=== PATIENT | female | born 1935 | race Hispanic/Latino ===

== ENCOUNTER 2017-12-11 20:13 | Inpatient (IN) | payer MEDICARE, BC ==
[2017-12-11] MEDS ORDERED: TDAP Vaccine 0.5 mL Syr IM ONE (21:01)
[2017-12-11 21:34] LABS: BASO # 0.02 K/mm3 (0.0-2.0); BASO % 0.3 % (0.0-3.0); EOS % 0.5 % (1.5-5.0); GRAN # 4.26 (1.4-6.5); HEMOGLOBIN 14.1 g/dL (12.0-16.0); LYMPH # 1.1 (1.2-3.4); LYMPH % 18.4 % (22.0-35.0); MEAN CELL VOLUME 88.1 fl (80.0-105.0); MEAN CORPUSCULAR HEMOGLOBIN 31.1 pg (25.0-35.0); MEAN CORPUSCULAR HGB CONC 35.3 g/dl (31.0-37.0); MEAN PLATELET VOLUME 8.8 fl (7.0-11.0); MONO # 0.4 (0.1-0.6); MONO % 6.8 % (1.0-6.0); RBC 4.53 10^6/uL (3.5-6.1); RED CELL DISTRIBUTION WIDTH 13.2 % (11.5-14.5); WHITE BLOOD COUNT 5.8 10^3/ul (4.5-11.0)
[2017-12-11 21:40] LABS: INR 0.99; PARTIAL THROMBOPLASTIN TIME 24.8 Seconds (25.1-36.5); PROTHROMBIN TIME 11.3 SECONDS (9.4-12.5)
[2017-12-11 21:42] LABS: ALB/GLOB RATIO 1.9 (1.1-1.8); ALBUMIN 4.2 g/dL (3.0-4.8); ALT/SGPT 32 U/L (7-56); AST/SGOT 37 U/L (14-36); BLOOD UREA NITROGEN 5 mg/dL (7-21); CALCIUM 8.8 mg/dL (8.4-10.5); GFR NON-AFRICAN AMERICAN > 60; LIPASE 285 U/L (23-300)
[2017-12-11 21:54] LABS: B-TYPE NATRIURETIC PEPTIDE 149 pg/mL (0-450); TROPONIN I < 0.01 ng/mL
--- NOTE | 2017-12-11 23:04 | ED PDOC ---
Arrival/HPI - General Chief Complaint: Trauma Time Seen by Provider: 12/11/17 20:30 Historian: Patient, Family - History of Present Illness Narrative History of Present Illness (Text): 12/11/17 23:04 82-year-old female with a history of dementia presents today after being found on the floor. Patient's daughter states that she spoke with the patient around 4 :30 this afternoon and then when she called the patient at 7:30 PM there was no answer so she called the police. Police found the patient on the ground with blood noted to the forehead/scalp. Patient states that she does not remember what happened. She denies headaches dizziness or weakness. She denies chest pain or shortness of breath. Patient states she was feeling fine yesterday and today. Patient states she has slight pain to the left ribs. She denies abdominal pain. No nausea or vomiting. She denies back pain. She denies hip pain. No other complaints. Past Medical History - Provider Review Nursing Documentation Reviewed: Yes - Travel History Have you recently traveled outside [place] w/in the past 3 mons?: No - Infectious Disease Hx of Infectious Diseases: None - Tetanus Immunization Tetanus Immunization: Unknown - Cardiac Hx Hypertension: Yes - Neurological Hx Dementia: Yes - Psychiatric Hx Depression: Yes Hx Substance Use: No - Surgical History Hx Hysterectomy: Yes - Anesthesia Hx Anesthesia: Yes Hx Anesthesia Reactions: No Hx Malignant Hyperthermia: No Family/Social History - Physician Review Nursing Documentation Reviewed: Yes Family/Social History: Unknown Family HX Smoking Status: Never Smoked Hx Alcohol Use: No Hx Substance Use: No Allergies/Home Meds Allergies/Adverse Reactions: Allergies No Known Allergies Allergy (Verified 12/11/17 20:26) Home Medications: Home Meds Medication Instructions Recorded Confirmed Donepezil HCl [Aricept] 10 mg PO DAILY 12/11/17 12/11/17 Escitalopram [Lexapro] 10 mg PO DAILY 12/11/17 12/11/17 Memantine [Namenda] 1 tab PO BID 12/11/17 12/11/17 Vit B12/Levomefolate/Vit B6/B2 1 tab PO DAILY 12/11/17 12/11/17 [Cerefolin [place]] Review of Systems - Review of Systems Constitutional: absent: Fatigue, Fevers Respiratory: absent: SOB, Cough Cardiovascular: Other (left sided rib pain). absent: Chest Pain, Palpitations Gastrointestinal: absent: Abdominal Pain, Nausea, Vomiting Genitourinary Female: absent: Dysuria, Frequency, Hematuria Musculoskeletal: absent: Back Pain, Neck Pain Skin: Laceration Neurological: absent: Headache, Dizziness Psychiatric: absent: Anxiety, Depression Physical Exam Vital Signs Reviewed: Yes Vital Signs Temp Pulse Resp BP Pulse Ox 12/11/17 20:17 97.5 F L 86 17 142/76 100 Temperature: Afebrile Blood Pressure: Normal Pulse: Regular Respiratory Rate: Normal Appearance: Positive for: Well-Appearing, Non-Toxic, Comfortable Pain Distress: None Mental Status: Positive for: other (ALERT x2) - Systems Exam Head: Present: Ecchymosis, Laceration (there is a 2cm linear laceration to left lateral forehead; no active bleeding; + ecchymosis. no step offs or crepitis) Pupils: Present: PERRL Extroacular Muscles: Present: EOMI Conjunctiva: Present: Normal Ears: Present: Normal, NORMAL TM Mouth: Present: Moist Mucous Membranes Pharnyx: Present: Normal Nose (External): Present: Atraumatic Nose (Internal): Present: Normal Inspection. No: Septal Hematoma, Epistaxis Neck: Present: Normal Range of Motion, Trachea Midline. No: MIDLINE TENDERNESS , Paraspinal Tenderness Respiratory/Chest: Present: Clear to Auscultation, Good Air Exchange, Tender to Palpation (+ ttp over left lateral upper ribs; no step offs or crepitus). No: Respiratory Distress, Accessory Muscle Use, Rhonchi, Tachypneic Cardiovascular: Present: Regular Rate and Rhythm, Normal S1, S2. No: Murmurs Abdomen: No: Tenderness, Distention, Rebound, Guarding Back: Present: Normal Inspection, Other (no ecchymosis). No: Midline Tenderness , Paraspinal Tenderness Upper Extremity: Present: Normal ROM. No: Tenderness Lower Extremity: Present: NORMAL PULSES, Normal ROM, Neurovascularly Intact, Capillary Refill < 2 s, Other (pelvis stable). No: Tenderness Neurological: Present: Speech Normal, Motor Func Grossly Intact, Normal Sensory Function Skin: Present: Warm, Dry, Normal Color Psychiatric: Present: Alert Medical Decision Making ED Course and Treatment: 12/11/17 23:38 82yr old female with syncope. ekg; normal sinus rhythm at 95 bpm normal axis normal intervals no ST elevations cxr; no infiltrate, no effusion Left ribs: Positive fracture of left third rib ct head; FINDINGS: Brain: Diffuse cerebral volume loss and chronic microvascular white matter changes. Ventricles: Unremarkable. Bones/joints: Unremarkable. No acute fracture. Soft tissues: Unremarkable. Sinuses: Unremarkable as visualized. Mastoid air cells: Unremarkable as visualized. IMPRESSION: No acute intracranial pathology or traumatic injury ct cspine: FINDINGS: Vertebrae: Multilevel discogenic degenerative changes. Mild multilevel spondylolisthesis, likely degenerative. No acute fracture. Discs/spinal canal/neural foramina: No acute findings. Soft tissues: Unremarkable. Lung apices: Unremarkable as visualized. IMPRESSION: No acute C-spine traumatic injury. chest CT: FINDINGS: Lungs: No mass. No consolidation. Pleural space: See below. Heart: No cardiomegaly. No significant pericardial effusion. Bones/joints: Fractures of the posterior left third rib with very minimal cortical step off. Minimal adjacent pleural thickening. No dislocation. Soft tissues: No radiopaque foreign body. Vasculature: No thoracic aortic aneurysm. Lymph nodes: No enlarged lymph nodes. IMPRESSION: Fractures of the posterior left third rib with very minimal cortical step off. Minimal adjacent pleural thickening. cbc; wnl cmp; wnl trop; wnl bnp; wnl ua; no leukocytes Laceration to the left forehead was cleaned and irrigated using high-pressure irrigation. Laceration repair with Dermabond. Patient reassessment: Patient is nontoxic well-appearing in no distress. all results discussed in depth with patient and her daughter. case discussed with dr. edward covering for dr. anthony impression; syncope, rib fracture, head injury, laceration observation to tele. dr. edward - Lab Interpretations Lab Results: 12/11/17 21:15 12/11/17 21:15 Lab Results 12/12/17 00:40: Urine Color Yellow, Urine Appearance Clear, Urine pH 7.5, Ur Specific [place] 1.015, Urine Protein Negative, Urine Glucose (UA) Negative, Urine Ketones Negative, Urine Blood Trace-intact H, Urine Nitrate Negative, Urine Bilirubin Negative, Urine Urobilinogen 0.2, Ur Leukocyte Esterase Negative , Urine RBC Pending, Urine WBC Pending 12/11/17 21:15: PT 11.3, INR 0.99, APTT 24.8 L 12/11/17 21:15: WBC 5.8, RBC 4.53, Hgb 14.1, Hct 39.9, MCV 88.1, MCH 31.1, MCHC 35.3, RDW 13.2, Plt Count 213, MPV 8.8, Gran % 74.0 H, Lymph % (Auto) 18.4 L, [place] % (Auto) 6.8 H, Eos % (Auto) 0.5 L, Baso % (Auto) 0.3, Gran # 4.26, Lymph # (Auto) 1.1 L, [place] # (Auto) 0.4, Eos # (Auto) 0.0, Baso # (Auto) 0.02 12/11/17 21:15: Sodium 133, Potassium 3.8, Chloride 94 L, Carbon Dioxide 31, Anion Gap 13, BUN 5 L, Creatinine 0.7, Est GFR ( Amer) > 60, Est GFR (Non -Af Amer) > 60, Random Glucose 119 H, Calcium 8.8, Total Bilirubin 0.3, AST 37 H , ALT 32, Alkaline Phosphatase 59, Lactate Dehydrogenase 524, Total Creatine Kinase 82, Troponin I < 0.01, NT-Pro-B Natriuret Pep 149, Total Protein 6.5, Albumin 4.2, Globulin 2.3, Albumin/Globulin Ratio 1.9 H, Lipase 285 - RAD Interpretation Radiology Orders: 12/11/17 20:59 HEAD W/O CONTRAST [CT] Stat 12/11/17 21:00 CERVICAL SPINE W/O CONTRAST [CT] Stat 12/11/17 21:01 RIBS LEFT [RAD] Stat 12/11/17 23:01 CHEST W/O CONTRAST [CT] Stat - Medication Orders Current Medication Orders: Discontinued Medications Acetaminophen (Tylenol 325mg Tab) 975 mg PO STAT STA Stop: 12/12/17 00:59 Tetanus/Reduced Diphtheria/Acell Pertussis (Boostrix Vaccine Inj) 0.5 ml IM .ONCE ONE Stop: 12/11/17 21:02 Last Admin: 12/11/17 22:05 Dose: 0.5 ml MAR Immunization Data Document 12/11/17 22:05 RD (Rec: 12/11/17 22:05 RD [id number]) Immunization Data Vaccine Information Sheet Given Yes Vaccine Information Sheet Given Date 12/11/17 Immunization Registry Document 09/16/18 22:05 RD (Rec: 12/11/17 22:05 RD [id number]) Immunization Registry Consent Date 12/11/17 Procedure: Wound Repair - Procedure Procedure: Wound Repair: left forehead - Consent Obtained Consent obtained: Verbal - Performed by Performed by: Mid-level Provider - Indications Indication(s):: Laceration - Location Shape:: Linear (2cm) Depth:: Epidermis - Debris Debris:: None - Irrigated Irrigated with ml of normal saline: copious amounts of NS using high pressure irrigation - Complexity Complexity:: Simple (one layer) - Wound repair method [place]:: Tissue glue - Complications Complications: none - Patient tolerated procedure Patient Tolerated Procedure:: Well Disposition/Present on Arrival - Present on Arrival Any Indicators Present on Arrival: No History of DVT/PE: No History of Uncontrolled Diabetes: No Urinary Catheter: No History of Decub. Ulcer: No History Surgical Site Infection Following: None - Disposition Have Diagnosis and Disposition been Completed?: Yes Diagnosis: Syncope, Rib fracture, Head injury, Laceration Disposition: HOSPITALIZED Disposition Time: 22:00 Patient Plan: Observation Patient Problems: Current Active Problems Problem Status Onset Head injury Acute Laceration Acute Rib fracture Acute Syncope Acute Condition: FAIR
[2017-12-12 01:11] LABS: PH,URINE 7.5 (4.7-8.0); URINE APPEARANCE CLEAR (CLEAR); URINE BILIRUBIN NEGATIVE (NEGATIVE); URINE BLOOD TRACE-INTACT (NEGATIVE); URINE COLOR YELLOW (YELLOW); URINE GLUCOSE (UA) NEGATIVE (NEGATIVE); URINE LEUKOCYTE ESTERASE NEGATIVE Leu/uL (NEGATIVE); URINE PROTEIN NEGATIVE mg/dL (<30 mg/dL); URINE UROBILINOGEN 0.2 E.U./dL (<1 E.U./dL)
[2017-12-12 01:21] LABS: URINE EPITHELIAL CELLS 0 - 2 /hpf (0-5); URINE RBC 0 - 2 /hpf (0-2); URINE WBC 0 - 2 /hpf (0-6)
--- NOTE | 2017-12-12 08:03 | CT ---
EXAM: CT Chest Without Intravenous Contrast CLINICAL HISTORY: 82 years old, female; Injury or trauma; Fall; Initial encounter; Blunt trauma (contusions or hematomas); Injury details: Pain posterior lt side; Additional info: Left rib fracture, rib pain fall TECHNIQUE: Axial computed tomography images of the chest without intravenous contrast. All CT scans at this facility use at least one of these dose optimization techniques: automated exposure control; mA and/or kV adjustment per patient size (includes targeted exams where dose is matched to clinical indication); or iterative reconstruction. Coronal and sagittal reformatted images were created and reviewed. COMPARISON: SD - CHEST PORTABLE 10/09/2015 7:56 PM FINDINGS: Lungs: No mass. No consolidation. Pleural space: See below. Heart: No cardiomegaly. No significant pericardial effusion. Bones/joints: Fractures of the posterior left third rib with very minimal cortical step off. Minimal adjacent pleural thickening. No dislocation. Soft tissues: No radiopaque foreign body. Vasculature: No thoracic aortic aneurysm. Lymph nodes: No enlarged lymph nodes. IMPRESSION: Fractures of the posterior left third rib with very minimal cortical step off. Minimal adjacent pleural thickening.
--- NOTE | 2017-12-12 09:47 | RAD ---
Date of service: 12/11/2017 PROCEDURE: Radiographs of the Chest and Left Ribs. HISTORY: Fall, left sided lateral/posterior rib pain COMPARISON: None available. TECHNIQUE: Frontal radiograph of the chest and multiple oblique radiographs of the left ribs were obtained. FINDINGS: LEFT RIBS: There is an acute nondisplaced fracture in the left lateral 3rd rib LUNGS: Clear. PLEURA: No pneumothorax or pleural fluid. CARDIOVASCULAR: Normal sized heart. No pulmonary vascular congestion. OTHER FINDINGS: None. IMPRESSION: Acute nondisplaced fracture in the left lateral 3rd rib. No pneumothorax.
--- NOTE | 2017-12-12 09:59 | RAD ---
Date of service: 12/12/2017 HISTORY: syncope COMPARISON: No prior. FINDINGS: LUNGS: There is peribronchial thickening with chronic changes in both lungs. PLEURA: No significant pleural effusion identified, no pneumothorax apparent. CARDIOVASCULAR: Normal. OSSEOUS STRUCTURES: No significant abnormalities. VISUALIZED UPPER ABDOMEN: Normal. OTHER FINDINGS: None. IMPRESSION: No active pulmonary disease.
--- NOTE | 2017-12-12 10:14 | CT ---
Date of service: 12/11/2017 PROCEDURE: CT HEAD WITHOUT CONTRAST. HISTORY: headache COMPARISON: None available. TECHNIQUE: Axial computed tomography images were obtained through the head/brain without intravenous contrast. Radiation dose: Total exam DLP = 1040 mGy-cm. This CT exam was performed using one or more of the following dose reduction techniques: Automated exposure control, adjustment of the mA and/or kV according to patient size, and/or use of iterative reconstruction technique. FINDINGS: HEMORRHAGE: No intracranial hemorrhage. BRAIN: No mass effect or edema. No atrophy or chronic microvascular ischemic changes. VENTRICLES: Unremarkable. No hydrocephalus. CALVARIUM: Unremarkable. PARANASAL SINUSES: Unremarkable as visualized. No significant inflammatory changes. MASTOID AIR CELLS: Unremarkable as visualized. No inflammatory changes. OTHER FINDINGS: The report concurs with the preliminary [facility] report IMPRESSION: No acute findings
--- NOTE | 2017-12-12 10:17 | CT ---
Date of service: 12/11/2017 PROCEDURE: CT Cervical Spine without contrast HISTORY: neck pain COMPARISON: None available. TECHNIQUE: Axial computed tomography images were obtained of the cervical spine without the use of intravenous contrast. Coronal and sagittal reformatted images were created and reviewed. Radiation dose: Total exam DLP = 258 mGy-cm. This CT exam was performed using one or more of the following dose reduction techniques: Automated exposure control, adjustment of the mA and/or kV according to patient size, and/or use of iterative reconstruction technique. FINDINGS: VERTEBRAE: No fracture. Normal alignment. No destructive bony lesion. DISCS/SPINAL CANAL/NEURAL FORAMINA: No significant central canal or neural foraminal stenosis. Disc degeneration at C5-6 and C6-7 PARASPINAL SOFT TISSUES: Unremarkable. OTHER FINDINGS: The report concurs with the preliminary [facility] report IMPRESSION: No acute findings
--- NOTE | 2017-12-12 13:24 | CP.PCM.HP ---
<JuniorhomeroavaGenaro day - Last Filed: 12/12/17 13:39> History of Present Illness - History of Present Illness History of Present Illness: 82 year old female with past medical history of HTN and dementia presented to the hospital by her daughter after being found on the floor at home. Patient with history of dementia, medical history from prior medical records. Multiple calls made to next of kin in chart with no answer. Patient did not pick up and delivery driver her phone from her daughter so she called the police of the patient. Patient does admit to hitting her head on the left side. Patient did not know why she was in the hospital or how she got there. ROS and PMH unobtainable due to patient's dementia. Present on Admission - Present on Admission Any Indicators Present on Admission: No Review of Systems - Review of Systems Systems not reviewed;Unavailable: Dementia Past Patient History - Infectious Disease Hx of Infectious Diseases: None - Tetanus Immunizations Tetanus Immunization: Unknown - Past Social History Smoking Status: Never Smoked - CARDIAC Hx Hypertension: Yes - NEUROLOGICAL Hx Dementia: Yes - PSYCHIATRIC Hx Depression: Yes Hx Substance Use: No - SURGICAL HISTORY Hx Hysterectomy: Yes - ANESTHESIA Hx Anesthesia: Yes Hx Anesthesia Reactions: No Hx Malignant Hyperthermia: No Meds Allergies/Adverse Reactions: Allergies Allergy/AdvReac Type Severity Reaction Status Date / Time No Known Allergies Allergy Verified 12/12/17 18:59 Physical Exam - Constitutional Appears: Non-toxic, No Acute Distress - Head Exam Head Exam: ATRAUMATIC, NORMAL INSPECTION, NORMOCEPHALIC - ENT Exam ENT Exam: Mucous Membranes Moist - Respiratory Exam Respiratory Exam: Clear to Auscultation Bilateral, NORMAL BREATHING PATTERN - Cardiovascular Exam Cardiovascular Exam: RRR, +S1, +S2 - GI/Abdominal Exam GI & Abdominal Exam: Normal Bowel Sounds, Soft. absent: Tenderness - Extremities Exam Extremities exam: Positive for: normal inspection - Neurological Exam Neurological exam: Alert Additional comments: Oriented to person only - Psychiatric Exam Psychiatric exam: Normal Affect, Normal Mood - Skin Skin Exam: Intact, Normal Color, Warm Results - Vital Signs Recent Vital Signs: Last Vital Signs Temp 97.9 F 12/12/17 09:10 Pulse 89 12/12/17 12:57 Resp 18 12/12/17 12:57 BP 136/77 12/12/17 12:57 Pulse Ox 100 12/12/17 12:57 - Labs Result Diagrams: 12/11/17 21:15 09/16/18 21:15 Assessment & Plan - Assessment and Plan (Free Text) Plan: 1. Syncope 2. Fall 3. Dementia 4. HTN Patient will be evaluated by cardiology and neurology for potential syncopal episode. Several attempts to contact family via telephone have been unsuccessful. Patient will continue her home medications for her dementia. Patient blood pressure stable that this time, will continue to monitor closely. Thomas PGY-3 <Blue Florez - Last Filed: 12/12/17 20:27> Results - Vital Signs Recent Vital Signs: Last Vital Signs Temp 97.9 F 12/12/17 19:02 Pulse 81 12/12/17 19:02 Resp 17 12/12/17 19:02 BP 135/78 12/12/17 19:02 Pulse Ox 99 12/12/17 18:25 - Labs Result Diagrams: 12/11/17 21:15 12/11/17 21:15 Assessment & Plan - Assessment and Plan (Free Text) Plan: Pt seen and examined. I have reviewed the note of the emergency medical technician/driver and agree with it. I have discussed the assessment and plan with the resident. I have reviewed the patient's labs and medications. Pt with syncope vs fall. Will get cardio and neurology. Will place on tele. Pt with Dementia.
--- NOTE | 2017-12-12 15:23 | CARD ---
APPROVED REPORT Date of service: 12/11/2017 EKG Measurement Heart [id number] <Conclusion> Normal sinus rhythm Normal ECG
--- NOTE | 2017-12-12 16:44 | CON ---
DATE: 12/12/2017 NEUROLOGY CONSULT CHIEF COMPLAINT: Status post syncope. HISTORY OF PRESENT ILLNESS: This is an 82-year-old woman with history of hypertension; cognitive impairment, on Aricept; and dementia who was found on the floor at home by the daughter. The patient did not pepper picker the phone from her daughter, so she called the police . The patient does admit hitting her head on the left side, but did not know how she passed out. Apparently, according to the daughter, she had drank a bottle of wine and few days given that this particular day when she drank the wine was her 's anniversary. Currently, her CAT scan of the head showed no acute intracranial abnormalities, showed some mild scalp hematoma. She is following commands, moving all extremities. No pronator drift seen on examination. She has a reduced BUN of 5, making her poorly hydrated hydration right now. PAST MEDICAL HISTORY: As above. SOCIAL HISTORY: No illicit drug use, smoking. Social drinker. ALLERGIES: NO KNOWN DRUG ALLERGIES. MEDICATIONS: Reviewed by nurses' reconciliation sheet. REVIEW OF SYSTEMS: A 14-point review of systems is negative except in the HPI. LABORATORY DATA: Sodium is 133, potassium 3.8, chloride of 94, carbon dioxide of 31, BUN of 5, creatinine 0.7, random glucose of 119. PHYSICAL EXAMINATION: VITAL SIGNS: Temperature is 97.9, pulse rate of 89, blood pressure 147/68, respiratory rate of 18, oxygen saturation 99% by room air. GENERAL: The patient is sitting up in bed, in no acute distress. HEENT: Atraumatic, normocephalic. PERRLA. Extraocular muscles intact. Has some bruising over her forehead from the fall. NECK: Supple. No JVD, no adenopathy noted. LUNGS: Clear to auscultation. No adventitious sounds. HEART: S1, S2. Normal rate and rhythm. No murmurs, rubs, or gallops. ABDOMEN: Soft, nontender, and nondistended. Bowel sounds are present. EXTREMITIES: No clubbing. No cyanosis. Peripheral pulses 2+ felt bilaterally. NEUROLOGIC: The patient is alert and oriented to person, place, and year. Recall after 5 minutes is 0/3. Poor attention span, slow thought process. Has a flat affect. Speech is fluent without any errors. No aphasia noted. Cranial nerves II through XII are intact. Motor: Slightly increased tone throughout. Moves all extremities equally. No pronator drift seen. Sensory: Light touch, pinprick, proprioception, and vibration are intact. DTRs are 2+ throughout, 1 at both knees and ankles. Coordination: [id number] intact. Toes are downgoing bilaterally. No dysmetria noted. Gait is deferred for now. IMPRESSION: The syncopal event could be secondary to vasovagal type from dehydration from drinking wine and possible fall with superimposed underlying deconditioned state. At this time, we would recommend: 1. Adequate hydration. 2. PT/OT evaluation. 3. Continue with Aricept 10 mg, Namenda 10 mg p.o. b.i.d. for cognitive impairment and advised frequent reorientation throughout the day and attention and concentration exercises in regards to her dementia. 4. Lexapro for underlying depression, 10 mg p.o. daily. 5. Monitor electrolytes and correct accordingly. 6. Aspirin 81 mg p.o. daily for stroke prevention. 7. Keep her systolic blood pressures between 130s-140s and diastolic 70s-80s. At this time, continue on current present medical management. Recommend a carotid Doppler. Thank you for this consult. Chuy Vail MD
--- NOTE | 2017-12-12 17:26 | US ---
PROCEDURE: Bilateral carotid artery duplex ultrasound HISTORY: Carotid stenosis syncope PHYSICIAN(S): Leonidas Berry MD. TECHNIQUE: Duplex sonography and color-flow Doppler were used to evaluate the carotid bifurcations and limited segments of the vertebral arteries bilaterally. FINDINGS: There is mild diffuse heterogeneous plaque noted at the carotid bifurcations bilaterally. The peak systolic velocity in the proximal right internal carotid artery is 112 cm/sec. This corresponds to a 40-59 percent proximal right ICA stenosis. Normal systolic velocities are noted in the proximal right external carotid artery. There is antegrade flow in the right vertebral artery. The peak systolic velocity in the proximal left internal carotid artery is 64 cm/sec. This corresponds to a 20 to 39% proximal left ICA stenosis. Normal systolic velocities are noted in the proximal left external carotid artery. There is antegrade flow in the left vertebral artery. IMPRESSION: 1. 40-59 percent proximal right ICA stenosis. 2. 20-39 percent proximal left ICA stenosis. 3. Antegrade flow in both vertebral arteries.
[2017-12-12 19:30] VITALS: BMI 21.9
[2017-12-12] MEDS ORDERED: Pneumococcal 23-Valent Vaccine IM ONE (19:30)
[2017-12-13 07:01] LABS: ALB/GLOB RATIO 1.4 (1.1-1.8); ALBUMIN 3.5 g/dL (3.0-4.8); ALT/SGPT 23 U/L (7-56); AST/SGOT 27 U/L (14-36); BLOOD UREA NITROGEN 12 mg/dL (7-21); GFR NON-AFRICAN AMERICAN > 60; HEMOGLOBIN 13.2 g/dL (12.0-16.0); MEAN CELL VOLUME 88.5 fl (80.0-105.0); MEAN CORPUSCULAR HEMOGLOBIN 30.3 pg (25.0-35.0); MEAN CORPUSCULAR HGB CONC 34.2 g/dl (31.0-37.0); MEAN PLATELET VOLUME 9.2 fl (7.0-11.0); RBC 4.36 10^6/uL (3.5-6.1); RED CELL DISTRIBUTION WIDTH 13.1 % (11.5-14.5); WHITE BLOOD COUNT 6.1 10^3/ul (4.5-11.0)
[2017-12-13] MEDS: Potassium Chloride 20 mEq ER Tab PO SCH (09:23)
--- NOTE | 2017-12-13 09:30 | CON ---
DATE: 12/13/2017 INDICATIONS: Fall at home with head trauma and rib fracture. HISTORY OF PRESENT ILLNESS: This is an 82-year-old woman admitted yesterday through the Emergency Room after a fall at home. She was found on the floor when she did not answer multiple phone calls made by her daughter. She has a laceration on the forehead and was found to have a rib fracture. The etiology of the fall is probably related to wine consumption and unsteady gait, although the exact details are not clear. There does not seem to have been no chest pain, shortness of breath, palpitations, vertigo, edema, claudication, orthopnea, PND, fever, chills, cough, sputum production, hemoptysis, abdominal pain, nausea, vomiting, diarrhea, constipation, melena. The patient is a very limited historian because of dementia and cognitive dysfunction. PAST MEDICAL HISTORY: Notable for hypertension and dementia. She has had a carotid ultrasound which demonstrated cerebrovascular disease of [id number] severity. There is no history of rheumatic fever, myocardial infarction, angina, congestive heart failure, arrhythmia, stroke, TIA, diabetes or gout. MEDICATIONS: At the time of admission include Aricept, Namenda, Lexapro, vitamin B12. ALLERGIES: THERE ARE NO MEDICATION ALLERGIES. SOCIAL HISTORY: She lives alone at home. Family watches her. She does not smoke cigarettes. She drinks wine on infrequent occasions. She was ambulatory, but limited. FAMILY HISTORY: Not available. REVIEW OF SYSTEMS: The 10-point review of systems is limited by dementia. PHYSICAL EXAMINATION: GENERAL: She is an elderly woman lying in bed on Telemetry, in no acute distress. VITAL SIGNS: She is in sinus rhythm at 84 beats per minute. She is afebrile. Blood pressure 140/70, respirations 16-20, O2 sat 95-99% on room air. HEENT: Exam reveals no neck vein distention, thyromegaly, carotid bruits. Mucous membranes moist. Conjunctiva pink. NECK: Supple. LUNGS: Lung barney clear. HEART: Revealed normal first and second heart sounds. ABDOMEN: Soft. Bowel sounds present. No mass, organomegaly, tenderness, rebound, guarding. No CVA tenderness. No palpable abdominal aortic aneurysm. EXTREMITIES: Revealed no cyanosis, clubbing or edema. NEUROLOGIC: She was awake, but not oriented. PSYCHIATRIC: Limited. There was dementia. SKIN: Warm and dry. No rash or cellulitis. LABORATORY AND IMAGING: Chest x-ray was a portable study, revealed no acute pulmonary disease. CT scan of the head reveals no acute findings. EKG, regular sinus rhythm, within normal limits. Cervical spine CT reveals no acute findings. X-ray of the ribs revealed acute nondisplaced fracture of the left lateral third rib. No pneumothorax. CT of the chest revealed fracture of the posterior left third rib. A carotid ultrasound revealed a moderate right ICA stenosis and mild left ICA stenosis. Antegrade flow in both vertebral arteries. White count normal. Hemoglobin, hematocrit, platelet count unremarkable. PT/INR normal. PTT 24.8. Electrolytes notable for potassium of 3.4, sodium 131, BUN 12, creatinine 0.6. Blood sugar is normal. LFT is unremarkable. CK 82, troponin less than 0.01. BNP 149. Lipase normal. Urinalysis noted. IMPRESSION: Kia Mckeon is an 82-year-old woman who fell at home, possibly related to unsteady gait, wine consumption, possible vasovagal episode. Her EKG is benign. Troponin was negative. There have been no arrhythmias so far on telemetry. She is undergoing a neurologic evaluation. I will order postural vital signs. She is getting Aricept, Lexapro, Namenda. Potassium should be replaced. I will follow along with you. I will order an echocardiogram. Overall, a conservative course of cardiac care is anticipated. Martin Leahy MD [facility]
--- NOTE | 2017-12-14 00:09 | PN ---
DATE: 12/13/2017 SUBJECTIVE: The patient has no complaints of any chest pain, no shortness of breath, no headaches or dizziness. PHYSICAL EXAMINATION: VITAL SIGNS: Temperature is 98.4, pulse of 82, blood pressure is 137/79, respirations 18. GENERAL: The patient is lying in bed, flat, comfortable. HEENT: No oral lesion. Anicteric sclerae. Moist mucosa. NECK: No JVD, adenopathy, or thyromegaly. CARDIOVASCULAR: S1 and S2, regular. No murmurs, rubs, or gallops. LUNGS: Clear to auscultation bilaterally. No wheeze, rales, or rhonchi. ABDOMEN: Bowel sounds are positive, soft, nontender and nondistended. EXTREMITIES: No cyanosis, clubbing or edema. LABORATORY DATA: Sodium is 131, potassium is 3.4, creatinine is 0.6. The patient's carotid ultrasound was reviewed, no significant abnormalities. The patient was seen by Dr. Leahy and by Dr. Vail and an echo has been ordered. ASSESSMENT: 1. Syncope. 2. 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 3. Hypertension. PLAN: The patient is currently on Aricept for her dementia. She is receiving potassium. She is on Lexapro. She is on memantine. The patient is on Tylenol. She is on incentive spirometry. She was seen by physical therapy, but was not fully evaluated. I did call the patient's daughter, but was not able to get in touch with her. I left a message updating the daughter, Orquidea; and also left her my number to call back. Blue Florez MD
--- NOTE | 2017-12-14 07:05 | CARD ---
APPROVED REPORT Date of service: 12/13/2017 EXAM: Two-dimensional and M-mode echocardiogram with Doppler and color Doppler. INDICATION Syncope 2D DIMENSIONS Left Atrium (2D)3.6 (1.6-4.0cm)IVSd1.0 (0.7-1.1cm) LVDd3.2 (3.9-5.9cm)PWd1.1 (0.7-1.1cm) LVDs2.1 (2.5-4.0cm)FS (%) 34.3 % LVEF (%)64.8 (>50%) M-Mode DIMENSIONS Aortic Root2.50 (2.2-3.7cm)Aortic Cusp Exc.1.50 (1.5-2.0cm) Aortic Valve AoV Peak Wagxlncp097.0cm/Beverley Peak GR.6mmHgLVOT Peak Njomkqqm212.0cm/s LVOT VTI23.70cm Mitral Valve MV E Cxtyeeft19.8cm/sMV A Jkwqtvfj088.0cm/sE/A ratio0.9 TDI Lateral E' Peak V7.51cm/sMedial E' Peak V7.02cm/sE/Lateral E'12.8 E/Medial E'13.6 Pulmonary Valve PV Peak Hbqzlsln89.1cm/sPV Peak Grad.2mmHg Tricuspid Valve TR Peak [id number]/sRAP [id number] Peak Gr.37mmHg [id number] LEFT VENTRICLE The left ventricle is normal size. There is normal left ventricular wall thickness. The left ventricular function is normal. The left ventricular ejection fraction is within the normal range. There is normal LV segmental wall motion. RIGHT VENTRICLE The right ventricle is normal size. The right ventricular systolic function is normal. ATRIA The left atrium size is normal. The right atrium size is normal. The interatrial septum is intact with no evidence for an atrial septal defect. AORTIC VALVE The aortic valve is mildly sclerotic. No aortic regurgitation is present. There is no aortic valvular stenosis. MITRAL VALVE Mitral annular calcification is mild. Mitral regurgitation is trace. TRICUSPID VALVE The tricuspid valve is normal in structure. There is moderate tricuspid regurgitation. PULMONIC VALVE The pulmonary valve is normal in structure. GREAT VESSELS The aortic root is normal in size. The IVC is normal in size and collapses >50% with inspiration. PERICARDIAL EFFUSION There is no pleural effusion. There is no pericardial effusion. <Conclusion> Normal chamber size. Normal LV systolic function. Moderate TR.
[2017-12-14] MEDS: Potassium Chloride 20 mEq ER Tab PO SCH (09:10)
--- NOTE | 2017-12-14 10:44 | CP.PCM.PN ---
<Genaro Guzman - Last Filed: 12/14/17 10:41> Subjective - Date & Time of Evaluation Date of Evaluation: 12/14/17 Time of Evaluation: 10:41 - Subjective Subjective: Patient seen and examined at bedside. Patient with no complaints at the present time. No acute events overnight. Denies chest pain, shortness of breath, nausea , vomiting, diarrhea, fever. Objective - Vital Signs/Intake and Output Vital Signs (last 24 hours): Temp Pulse Resp BP Pulse Ox 98.4 F 84 18 168/81 H 100 12/14/17 06:00 12/14/17 06:00 12/14/17 06:00 12/13/17 23:31 12/13/17 23:31 Intake and Output: 12/14/17 12/14/17 06:59 18:59 Intake Total 440 Balance 440 - Medications Medications: Current Medications Donepezil HCl (Aricept) 10 mg PO DAILY [facility] Last Admin: 12/14/17 09:11 Dose: 10 mg Escitalopram Oxalate (Lexapro) 10 mg PO DAILY [facility] Last Admin: 12/14/17 09:10 Dose: 10 mg Lorazepam (Ativan) 0.5 mg IVP Q6H PRN; Protocol PRN Reason: Anxiety Last Admin: 12/12/17 20:38 Dose: 0.5 mg Memantine (Namenda) 10 mg PO BID [facility] Last Admin: 12/14/17 09:10 Dose: 10 mg Potassium Chloride (K-Dur 20 Meq Er Tab) 20 meq PO BRK [facility] Last Admin: 12/14/17 09:10 Dose: 20 meq - Labs Labs: PT 11.3 SECONDS (9.4-12.5) 12/11/17 21:15 INR 0.99 12/11/17 21:15 APTT 24.8 Seconds (25.1-36.5) L 12/11/17 21:15 - Constitutional Appears: Non-toxic, No Acute Distress - Head Exam Head Exam: NORMAL INSPECTION, NORMOCEPHALIC Additional comments: Bruising of left temporal region - ENT Exam ENT Exam: Mucous Membranes Moist - Respiratory Exam Respiratory Exam: Clear to Ausculation Bilateral, NORMAL BREATHING PATTERN - Cardiovascular Exam Cardiovascular Exam: RRR, +S1, +S2 - GI/Abdominal Exam GI & Abdominal Exam: Soft, Normal Bowel Sounds. absent: Tenderness - Extremities Exam Extremities Exam: Normal Inspection. absent: Pedal Edema, Tenderness - Neurological Exam Neurological Exam: Alert, Awake, CN II-XII Intact, Oriented x3 - Psychiatric Exam Psychiatric exam: Anxious, Normal Affect - Skin Skin Exam: Dry, Intact, Warm Assessment and Plan - Assessment and Plan (Free Text) Plan: 1. Syncope 2. Dementia, probably Alzheimer's 3. S/p fall 4. HTN The patient currently remains on Aricept and Namenda for her Dementia. Patient will remain on Lexapro. The patient continues to be on tylenol as needed for fever or pain. Patient will be seen by physical therapy today. Echocardiogram shows normal ejection fraction with mild TR. Patient also evaluated by neurology who recommend maintaining adequate blood pressure. Multiple attempts have been made to contact patient's daughter with no success. Will continue to try to contact daughter. Will continue current medical regimen and monitor closely. Thomas, PGY-3 <Blue Florez S - Last Filed: 12/15/17 18:57> Objective - Vital Signs/Intake and Output Vital Signs (last 24 hours): Temp Pulse Resp BP Pulse Ox 98.8 F 77 20 141/71 99 12/15/17 06:00 12/15/17 06:00 12/15/17 06:00 12/15/17 06:00 12/15/17 06:00 Intake and Output: 12/15/17 12/15/17 06:59 18:59 Intake Total 0 Balance 0 - Labs Labs: 12/15/17 07:45 12/15/17 07:45 PT 11.3 SECONDS (9.4-12.5) 12/11/17 21:15 INR 0.99 12/11/17 21:15 APTT 24.8 Seconds (25.1-36.5) L 12/11/17 21:15 Assessment and Plan - Assessment and Plan (Free Text) Plan: Pt seen and examined. This is a late entry. I have reviewed the note of the medical administrative and agree with it. I have discussed the assessment and plan with the resident. I have reviewed the patient's labs and medications. I spoke to pt's daughter Orquidea. She prefers to take her home and not to a [facility] facility. I went over the work up and results. Explained to her the plan of care.
--- NOTE | 2017-12-14 18:01 | PN ---
DATE: 12/14/2017 SUBJECTIVE: The patient is seen lying in bed on telemetry. She offers no complaints at present. She denies any chest pain or dyspnea. Telemetry monitoring has been unremarkable. CURRENT MEDICATIONS: Include Aricept, Ativan, Lexapro, Namenda, and potassium. OBJECTIVE: VITAL SIGNS: Her blood pressure is 146/62 with a pulse of 80 and sinus with occasional PVC, respirations 16. She is afebrile. HEENT: No JVD. CHEST: Few scattered rhonchi. HEART: PMI in normal position. Systolic murmurs present in the left sternal border. ABDOMEN: Soft, nontender, normoactive bowel sounds. EXTREMITIES: No edema. DIAGNOSTIC DATA: No blood work pending from the morning. Echocardiogram reveals normal chamber size with normal LV systolic function, moderate tricuspid regurgitation. IMPRESSION: 1. Recent fall, etiology unclear. No clear evidence of dysrhythmias noted thus far. 2. Moderate tricuspid regurgitation with preserved left ventricular function. 3. History of dementia. 4. History of hypertension. RECOMMENDATIONS: At the present time, continuing conservative management appears most appropriate. No further cardiac workup appears necessary at this time. If she has recurrent symptoms, this can be reassessed. Telemetry monitoring can be discontinued as well. Thank you for this consultation. We will be happy to see her as needed. Adonis Faye MD
[2017-12-14 21:15] VITALS: RESP 20
[2017-12-15 08:06] LABS: HEMOGLOBIN 12.7 g/dL (12.0-16.0); MEAN CELL VOLUME 89.4 fl (80.0-105.0); MEAN CORPUSCULAR HEMOGLOBIN 30.7 pg (25.0-35.0); MEAN CORPUSCULAR HGB CONC 34.3 g/dl (31.0-37.0); MEAN PLATELET VOLUME 9.1 fl (7.0-11.0); RBC 4.14 10^6/uL (3.5-6.1); WHITE BLOOD COUNT 7.1 10^3/ul (4.5-11.0)
[2017-12-15 08:26] LABS: ALB/GLOB RATIO 1.3 (1.1-1.8); ALBUMIN 3.6 g/dL (3.0-4.8); ALT/SGPT 25 U/L (7-56); AST/SGOT 24 U/L (14-36); BLOOD UREA NITROGEN 14 mg/dL (7-21); GFR NON-AFRICAN AMERICAN > 60
[2017-12-15 09:26] VITALS: BP 141/71; PULSE 77; TEMP 98.8; O2SAT 99
[2017-12-15] MEDS: Potassium Chloride 20 mEq ER Tab PO SCH (09:51)
--- NOTE | 2017-12-15 16:38 | CP.PCM.DIS ---
<Genaro Guzman - Last Filed: 12/15/17 16:34> Provider - Provider Date of Admission: 12/13/17 16:25 Attending physician: Blue Florez MD Consults: Neuro: Dr. Vail Cardio: Dr. Leahy Time Spent in preparation of Discharge (in minutes): 45 Diagnosis - Discharge Diagnosis (1) Head injury Status: Resolved (2) Syncope Status: Resolved (3) HTN (hypertension) Status: Chronic (4) Dementia Status: Chronic Hospital Course - Lab Results Lab Results: Most Recent Lab Values WBC 7.1 10^3/ul (4.5-11.0) 12/15/17 07:45 RBC 4.14 10^6/uL (3.5-6.1) 12/15/17 07:45 Hgb 12.7 g/dL (12.0-16.0) 12/15/17 07:45 Hct 37.0 % (36.0-48.0) 12/15/17 07:45 MCV 89.4 fl (80.0-105.0) 12/15/17 07:45 MCH 30.7 pg (25.0-35.0) 12/15/17 07:45 MCHC 34.3 g/dl (31.0-37.0) 12/15/17 07:45 RDW 13.0 % (11.5-14.5) 12/15/17 07:45 Plt Count 156 10^3/uL (120.0-450.0) 12/15/17 07:45 MPV 9.1 fl (7.0-11.0) 12/15/17 07:45 Gran % 74.0 % (50.0-68.0) H 12/11/17 21:15 Lymph % (Auto) 18.4 % (22.0-35.0) L 12/11/17 21:15 Nicholas % (Auto) 6.8 % (1.0-6.0) H 12/11/17 21:15 Eos % (Auto) 0.5 % (1.5-5.0) L 12/11/17 21:15 Baso % (Auto) 0.3 % (0.0-3.0) 12/11/17 21:15 Gran # 4.26 (1.4-6.5) 12/11/17 21:15 Lymph # (Auto) 1.1 (1.2-3.4) L 12/11/17 21:15 Nicholas # (Auto) 0.4 (0.1-0.6) 12/11/17 21:15 Eos # (Auto) 0.0 (0.0-0.7) 12/11/17 21:15 Baso # (Auto) 0.02 K/mm3 (0.0-2.0) 12/11/17 21:15 PT 11.3 SECONDS (9.4-12.5) 12/11/17 21:15 INR 0.99 12/11/17 21:15 APTT 24.8 Seconds (25.1-36.5) L 12/11/17 21:15 Sodium 130 mmol/L (132-148) L 12/15/17 07:45 Potassium 4.3 mmol/L (3.6-5.0) 12/15/17 07:45 Chloride 95 mmol/L (98-107) L 12/15/17 07:45 Carbon Dioxide 29 mmol/L (21-33) 12/15/17 07:45 Anion Gap 11 (10-20) 12/15/17 07:45 BUN 14 mg/dL (7-21) 12/15/17 07:45 Creatinine 0.6 mg/dl (0.7-1.2) L 12/15/17 07:45 Est GFR ( Amer) > 60 12/15/17 07:45 Est GFR (Non-Af Amer) > 60 12/15/17 07:45 POC Glucose (mg/dL) 134 mg/dL (65-110) H 12/13/17 21:21 Random Glucose 99 mg/dL (70-110) 12/15/17 07:45 Calcium 9.0 mg/dL (8.4-10.5) 12/15/17 07:45 Magnesium 1.9 mg/dL (1.7-2.2) 12/13/17 15:58 Total Bilirubin 0.7 mg/dL (0.2-1.3) 12/15/17 07:45 AST 24 U/L (14-36) 12/15/17 07:45 ALT 25 U/L (7-56) 12/15/17 07:45 Alkaline Phosphatase 49 U/L (38-126) 12/15/17 07:45 Lactate Dehydrogenase 524 U/L (333-699) 12/11/17 21:15 Total Creatine Kinase 82 U/L (35-230) 12/11/17 21:15 Troponin I < 0.01 ng/mL 12/13/17 07:00 NT-Pro-B Natriuret Pep 149 pg/mL (0-450) 12/11/17 21:15 Total Protein 6.2 g/dL (5.8-8.3) 12/15/17 07:45 Albumin 3.6 g/dL (3.0-4.8) 12/15/17 07:45 Globulin 2.7 gm/dL 12/15/17 07:45 Albumin/Globulin Ratio 1.3 (1.1-1.8) 12/15/17 07:45 Lipase 285 U/L (23-300) 12/11/17 21:15 Urine Color Yellow (YELLOW) 12/12/17 00:40 Urine Appearance Clear (CLEAR) 12/12/17 00:40 Urine pH 7.5 (4.7-8.0) 12/12/17 00:40 Ur Specific Sun 1.015 (1.005-1.035) 12/12/17 00:40 Urine Protein Negative mg/dL (<30 mg/dL) 12/12/17 00:40 Urine Glucose (UA) Negative mg/dL (NEGATIVE) 12/12/17 00:40 Urine Ketones Negative mg/dL (NEGATIVE) 12/12/17 00:40 Urine Blood Trace-intact (NEGATIVE) H 12/12/17 00:40 Urine Nitrate Negative (NEGATIVE) 12/12/17 00:40 Urine Bilirubin Negative (NEGATIVE) 12/12/17 00:40 Urine Urobilinogen 0.2 E.U./dL (<1 E.U./dL) 18 00:40 Ur Leukocyte Esterase Negative Celio/uL (NEGATIVE) 18 00:40 Urine RBC 0 - 2 /hpf (0-2) 1718 00:40 Urine WBC 0 - 2 /hpf (0-6) 12/12/17 00:40 Ur Epithelial Cells 0 - 2 /hpf (0-5) 12/12/17 00:40 - Hospital Course Hospital Course: 82 year old female with past medical history of HTN and dementia presented to the hospital s/p fall at home. Patient was not answering the phone, so patient' s daughter called the police who found patient on the floor. Patient was brought into the hospital and found to have a bruise on the left side of her head. Patient was found to have nondisplaced left third rib fracture. Head and cervical neck CT was negative. Patient was seen by cardiology and neurology. Echocardiogram showed normal LV function. Carotid artery US was normal with no significant stenoses. Patient will be discharged home with daughter. Patient will follow up with PMD within 1 week. Discharge Exam - Head Exam Head Exam: NORMAL INSPECTION, NORMOCEPHALIC Additional comments: Left temporal bruising - ENT Exam ENT Exam: Mucous Membranes Moist - Respiratory Exam Respiratory Exam: NORMAL BREATHING PATTERN, UNREMARKABLE - Cardiovascular Exam Cardiovascular Exam: RRR, +S1, +S2 - GI/Abdominal Exam GI & Abdominal Exam: Normal Bowel Sounds, Soft. absent: Tenderness - Extremities Exam Extremities exam: normal inspection Additional comments: Oriented to person - Neurological Exam Neurological exam: Alert - Psychiatric Exam Psychiatric exam: Normal Mood - Skin Skin Exam: Intact, Normal Color, Warm Discharge Plan - Follow Up Plan Condition: FAIR Disposition: HOME/ ROUTINE Instructions: Laceration Repair, Rib Fracture (DC), Preventing Falls, Minor Head Injury (DC), Syncope (GEN) Additional Instructions: You have been discharged from [facility]. Please f/u with MD in 1 week. Referrals: Martin Leahy MD [Staff Provider] - Chuy Vail MD [Staff Provider] - <Blue Florez - Last Filed: 12/15/17 20:56> Provider - Provider Date of Admission: 12/13/17 16:25 Attending physician: Blue Florez MD Hospital Course - Lab Results Lab Results: Most Recent Lab Values WBC 7.1 10^3/ul (4.5-11.0) 12/15/17 07:45 RBC 4.14 10^6/uL (3.5-6.1) 12/15/17 07:45 Hgb 12.7 g/dL (12.0-16.0) 12/15/17 07:45 Hct 37.0 % (36.0-48.0) 12/15/17 07:45 MCV 89.4 fl (80.0-105.0) 12/15/17 07:45 MCH 30.7 pg (25.0-35.0) 12/15/17 07:45 MCHC 34.3 g/dl (31.0-37.0) 12/15/17 07:45 RDW 13.0 % (11.5-14.5) 12/15/17 07:45 Plt Count 156 10^3/uL (120.0-450.0) 12/15/17 07:45 MPV 9.1 fl (7.0-11.0) 12/15/17 07:45 Gran % 74.0 % (50.0-68.0) H 12/11/17 21:15 Lymph % (Auto) 18.4 % (22.0-35.0) L 12/11/17 21:15 Nicholas % (Auto) 6.8 % (1.0-6.0) H 12/11/17 21:15 Eos % (Auto) 0.5 % (1.5-5.0) L 12/11/17 21:15 Baso % (Auto) 0.3 % (0.0-3.0) 12/11/17 21:15 Gran # 4.26 (1.4-6.5) 12/11/17 21:15 Lymph # (Auto) 1.1 (1.2-3.4) L 12/11/17 21:15 Nicholas # (Auto) 0.4 (0.1-0.6) 12/11/17 21:15 Eos # (Auto) 0.0 (0.0-0.7) 12/11/17 21:15 Baso # (Auto) 0.02 K/mm3 (0.0-2.0) 12/11/17 21:15 PT 11.3 SECONDS (9.4-12.5) 12/11/17 21:15 INR 0.99 12/11/17 21:15 APTT 24.8 Seconds (25.1-36.5) L 12/11/17 21:15 Sodium 130 mmol/L (132-148) L 12/15/17 07:45 Potassium 4.3 mmol/L (3.6-5.0) 12/15/17 07:45 Chloride 95 mmol/L (98-107) L 12/15/17 07:45 Carbon Dioxide 29 mmol/L (21-33) 12/15/17 07:45 Anion Gap 11 (10-20) 12/15/17 07:45 BUN 14 mg/dL (7-21) 12/15/17 07:45 Creatinine 0.6 mg/dl (0.7-1.2) L 12/15/17 07:45 Est GFR ( Amer) > 60 12/15/17 07:45 Est GFR (Non-Af Amer) > 60 12/15/17 07:45 POC Glucose (mg/dL) 134 mg/dL (65-110) H 12/13/17 21:21 Random Glucose 99 mg/dL (70-110) 12/15/17 07:45 Calcium 9.0 mg/dL (8.4-10.5) 12/15/17 07:45 Magnesium 1.9 mg/dL (1.7-2.2) 12/13/17 15:58 Total Bilirubin 0.7 mg/dL (0.2-1.3) 12/15/17 07:45 AST 24 U/L (14-36) 12/15/17 07:45 ALT 25 U/L (7-56) 12/15/17 07:45 Alkaline Phosphatase 49 U/L (38-126) 12/15/17 07:45 Lactate Dehydrogenase 524 U/L (333-699) 12/11/17 21:15 Total Creatine Kinase 82 U/L (35-230) 12/11/17 21:15 Troponin I < 0.01 ng/mL 12/13/17 07:00 NT-Pro-B Natriuret Pep 149 pg/mL (0-450) 12/11/17 21:15 Total Protein 6.2 g/dL (5.8-8.3) 12/15/17 07:45 Albumin 3.6 g/dL (3.0-4.8) 12/15/17 07:45 Globulin 2.7 gm/dL 12/15/17 07:45 Albumin/Globulin Ratio 1.3 (1.1-1.8) 12/15/17 07:45 Lipase 285 U/L (23-300) 12/11/17 21:15 Urine Color Yellow (YELLOW) 12/12/17 00:40 Urine Appearance Clear (CLEAR) 12/12/17 00:40 Urine pH 7.5 (4.7-8.0) 12/12/17 00:40 Ur Specific Sun 1.015 (1.005-1.035) 12/12/17 00:40 Urine Protein Negative mg/dL (<30 mg/dL) 12/12/17 00:40 Urine Glucose (UA) Negative mg/dL (NEGATIVE) 12/12/17 00:40 Urine Ketones Negative mg/dL (NEGATIVE) 12/12/17 00:40 Urine Blood Trace-intact (NEGATIVE) H 12/12/17 00:40 Urine Nitrate Negative (NEGATIVE) 12/12/17 00:40 Urine Bilirubin Negative (NEGATIVE) 12/12/17 00:40 Urine Urobilinogen 0.2 E.U./dL (<1 E.U./dL) 12/12/17 00:40 Ur Leukocyte Esterase Negative Celio/uL (NEGATIVE) 12/12/17 00:40 Urine RBC 0 - 2 /hpf (0-2) 12/12/17 00:40 Urine WBC 0 - 2 /hpf (0-6) 12/12/17 00:40 Ur Epithelial Cells 0 - 2 /hpf (0-5) 12/12/17 00:40 - Hospital Course Hospital Course: Pt seen and examined. I have reviewed the note of the medical doctor md/medical director and agree with it. I have discussed the assessment and plan with the resident. I have reviewed the patient's labs and medications. Pt will be discharged home. Daughter does not want her to go to [facility]. Echo was reviewed.
== END 2017-12-15 11:15 | disposition home health service (06) | DRG 57 ==
LOC: ED 20:13 → ERH 12-12 00:49 → 2RNO 12-12 18:28 → OBSVTOIN 12-13 16:25 → 5RSO 12-14 11:53
PROVIDERS: ADMIT Internal Medicine Nephrology; ATTEND Internal Medicine Nephrology
PROC: 0HQ1XZZ Repair Face Skin, External Approach (ICD-10-PCS; principal; 2017-12-11)
DX: G30.9 Alzheimer's disease, unspecified (principal); S22.32XA Fracture of one rib, left side, initial encounter for closed fracture; F02.81 Dementia in other diseases classified elsewhere, unspecified severity, with behavioral disturbance; F05 Delirium due to known physiological condition; S22.39XA Fracture of one rib, unspecified side, initial encounter for closed fracture; G30.1 Alzheimer's disease with late onset; R55 Syncope and collapse; E86.0 Dehydration; S01.81XA Laceration without foreign body of other part of head, initial encounter; E87.8 Other disorders of electrolyte and fluid balance, not elsewhere classified; Z79.899 Other long term (current) drug therapy; I10 Essential (primary) hypertension; M43.10 Spondylolisthesis, site unspecified; F32.9 Major depressive disorder, single episode, unspecified; W19.XXXA Unspecified fall, initial encounter; Y92.009 Unspecified place in unspecified non-institutional (private) residence as the place of occurrence of the external cause; F02.80 Dementia in other diseases classified elsewhere, unspecified severity, without behavioral disturbance, psychotic disturbance, mood disturbance, and anxiety; I07.1 Rheumatic tricuspid insufficiency; I67.9 Cerebrovascular disease, unspecified; Z90.710 Acquired absence of both cervix and uterus